=== PATIENT | female | born 1945 | race Caucasian/White ===

== ENCOUNTER 2020-12-29 13:46 | Outpatient (CLI) | payer MEDICARE | END 2020-12-29 13:47 | disposition home or self-care (01) | LOC: CSHRAD 13:46 | PROVIDERS: ATTEND Nurse Practitioner | DX: R06.00 Dyspnea, unspecified (principal) | CPT/HCPCS: 71046 ==

== ENCOUNTER 2021-06-17 09:03 | Inpatient (IN) | payer MEDICARE ==
[2021-06-17 10:10] LABS: Hemoglobin 9.6 g/dL (12.0-15.5); Mean Corpuscular HGB CONC 30.7 g/dL (32.0-36.0); Mean Corpuscular Hemoglobin 29.4 pg (27.0-33.0); Mean Platelet Volume 12.8 fl (7.4-10.4); Platelet Count 167 10x3/uL (150-450); RBC Distribution Width 15.9 % (11.5-14.5); Red Blood Cell (RBC) Count 3.26 10x6/uL (3.90-5.03); White Blood Cell (WBC) Count 2.6 10x3/uL (3.5-10.5)
[2021-06-17 10:11] LABS: MDiff Complete? YES
[2021-06-17 10:26] LABS: ALT (SGPT) 13 U/L (8-55); AST (SGOT) 13 U/L (5-34); Albumin 2.6 g/dL (3.4-4.8); Alkaline Phosphatase 64 U/L (40-110); Anion Gap 12 mmol/L (10-20); BUN (Urea Nitrogen) 14 mg/dL (9.8-20.1); Bilirubin, Total 0.4 mg/dL (0.2-1.2); Calc. Creatinine Clearance 0 mL/min (70-130); Calcium 7.8 mg/dL (7.8-10.44); Carbon Dioxide 31 mmol/L (23-31); Chloride 99 mmol/L (98-107); Globulin 1.8 g/dL (2.4-3.5); Glucose 132 mg/dL (83-110); Potassium 3.9 mmol/L (3.5-5.1); Protein, Total 4.4 g/dL (5.8-8.1); Sodium 138 mmol/L (136-145)
[2021-06-17 10:48] LABS: CKMB 1.4 ng/mL (0-6.6)
[2021-06-17 10:56] LABS: Lymphocytes 27 % (21-51); Neutrophil 30 % (42-75)
[2021-06-17 10:57] LABS: Eosinophils 28 % (0-10); Monocytes 15 % (0-10); Platelet Morphology Comment Appears Adequate
[2021-06-17 11:07] LABS: Hypochromia SLIGHT = 6-15 cells (100X) (0-5/hpf); Polychromasia SLIGHT = 2-3 cells (100X) (0-2/hpf)
[2021-06-17] MEDS ORDERED: Aspirin Chewable 81 MG TAB ONE (13:06)
[2021-06-17] MEDS ORDERED: Nitroglycerin 0.4 MG TAB (25 Tab Bottle) SL PRN (13:17)
[2021-06-17] MEDS ORDERED: Guaifenesin DM 100-10/5 ML UDCUP PO PRN (13:21)
[2021-06-17] MEDS ORDERED: Acetaminophen 325 MG TAB PO PRN (13:23)
[2021-06-17] MEDS ORDERED: Calcium Carbonate 500 MG ChewTAB PO PRN (13:23)
[2021-06-17] MEDS ORDERED: Ondansetron ODT 4 MG TAB PO PRN (13:23)
[2021-06-17 13:29] LABS: Troponin I 0.105 ng/mL (< 0.028)
[2021-06-17 14:43] LABS: Magnesium 2.1 mg/dL (1.6-2.6)
[2021-06-17] MEDS ORDERED: Furosemide 40 MG/4 ML VIAL SLOW IVP SCH (15:00)
[2021-06-17 16:45] LABS: Troponin I 0.105 ng/mL (< 0.028)
[2021-06-17] MEDS: guaiFENesin ER 600 MG TAB PO SCH (19:29)
[2021-06-17] MEDS: Benzonatate 100 MG CAP PO PRN (19:29)
[2021-06-18 05:20] LABS: Hemoglobin 9.2 g/dL (12.0-15.5); Mean Corpuscular Hemoglobin 29.5 pg (27.0-33.0); Mean Corpuscular Volume 95.2 fl (81.6-98.3); Mean Platelet Volume 12.4 fl (7.4-10.4); Platelet Count 149 10x3/uL (150-450); Red Blood Cell (RBC) Count 3.12 10x6/uL (3.90-5.03)
[2021-06-18 05:31] LABS: Anion Gap 15 mmol/L (10-20); BUN (Urea Nitrogen) 20 mg/dL (9.8-20.1); Calc. Creatinine Clearance 54 mL/min (70-130); Carbon Dioxide 31 mmol/L (23-31); Chloride 97 mmol/L (98-107); Cholesterol 223 mg/dl (< 200 Desired); Glucose 102 mg/dL (83-110); HDL Cholesterol 45 mg/dL (>60 Neg Risk); LDL Cholesterol, Calculated 151 mg/dL; Potassium 3.6 mmol/L (3.5-5.1); Sodium 139 mmol/L (136-145); Triglycerides 136 mg/dL (Less than 150)
[2021-06-18 06:37] LABS: MDiff Complete? YES
[2021-06-18 06:45] LABS: Band 2 % (5-11); Eosinophils 23 % (0-10); Lymphocytes 31 % (21-51); Monocytes 26 % (0-10); Neutrophil 16 % (42-75); Reactive Lymphocytes 2 % (0-10)
[2021-06-18 06:46] LABS: Platelet Morphology Comment Appears Adequate; RBC Morphology Normal
[2021-06-18] MEDS ORDERED: Potassium Chloride 20 MEQ TAB PO SCH (07:15)
[2021-06-18] MEDS: Benzonatate 100 MG CAP PO PRN (08:37)
[2021-06-18] MEDS: Enoxaparin Sodium 40 MG/0.4 ML SYRINGE SC SCH (08:37)
[2021-06-18] MEDS: Furosemide 40 MG TAB PO SCH ×2 (08:37→14:14)
[2021-06-18] MEDS: Zinc Sulfate 220 MG CAP PO SCH (08:38)
[2021-06-18] MEDS: Magnesium Oxide 400 MG TAB PO SCH (08:38)
[2021-06-18] MEDS: guaiFENesin ER 600 MG TAB PO SCH ×2 (08:38→20:07)
[2021-06-18] MEDS: Nebivolol HCl 5 MG TAB PO SCH (08:38)
[2021-06-18] MEDS: Cholecalciferol 1,000 UNITS (25 MCG) TAB PO SCH (08:38)
[2021-06-18] MEDS: Aspirin Chewable 81 MG TAB PO SCH (08:38)
[2021-06-18] MEDS: Citalopram 20 MG TAB PO SCH (08:38)
[2021-06-18] MEDS: Potassium Chloride 20 MEQ TAB PO SCH (08:38)
[2021-06-18] MEDS ORDERED: Furosemide 40 MG TAB PO SCH (09:00)
[2021-06-18] MEDS ORDERED: Dexamethasone 4 mg/ml Vial SLOW IVP SCH (13:15)
[2021-06-18] MEDS ORDERED: REMDESIVIR 200 MG in Sodium Chloride 0.9% 250 ML 210 ML IV SCH (14:00)
[2021-06-18] MEDS: Loperamide HCl 2 MG CAP PO PRN (18:00)
[2021-06-19 04:27] LABS: ALT (SGPT) 11 U/L (8-55); AST (SGOT) 12 U/L (5-34); Albumin 2.3 g/dL (3.4-4.8); Alkaline Phosphatase 59 U/L (40-110); Bilirubin, Direct 0.1 mg/dL (0.1-0.3); Bilirubin, Total 0.3 mg/dL (0.2-1.2); Protein, Total 4.5 g/dL (5.8-8.1)
[2021-06-19 05:33] VITALS: BMI 20.6
[2021-06-19] MEDS: guaiFENesin ER 600 MG TAB PO SCH ×2 (08:33→20:04)
[2021-06-19] MEDS: Citalopram 20 MG TAB PO SCH (08:33)
[2021-06-19] MEDS: Furosemide 40 MG TAB PO SCH ×2 (08:33→14:58)
[2021-06-19] MEDS: Magnesium Oxide 400 MG TAB PO SCH (08:33)
[2021-06-19] MEDS: Cholecalciferol 1,000 UNITS (25 MCG) TAB PO SCH (08:33)
[2021-06-19] MEDS: Zinc Sulfate 220 MG CAP PO SCH (08:33)
[2021-06-19] MEDS: Nebivolol HCl 5 MG TAB PO SCH (08:33)
[2021-06-19] MEDS: Aspirin Chewable 81 MG TAB PO SCH (08:33)
[2021-06-19] MEDS: Potassium Chloride 20 MEQ TAB PO SCH (08:33)
[2021-06-19] MEDS: Enoxaparin Sodium 40 MG/0.4 ML SYRINGE SC SCH (08:34)
[2021-06-19] MEDS: Dexamethasone 4 mg/ml Vial SLOW IVP SCH (08:34)
[2021-06-19] MEDS ORDERED: Cepastat Lozenges 1 LOZ PO PRN (09:38)
[2021-06-19] MEDS: REMDESIVIR 100 MG in Sodium Chloride 0.9% 250 ML 230 ML IV SCH (14:57)
[2021-06-19] MEDS: Sodium Chloride 0.65% Nasal 44 ML BOT EA NARE SCH ×2 (16:26→20:04)
[2021-06-20 04:18] LABS: Hemoglobin 8.8 g/dL (12.0-15.5); Mean Corpuscular HGB CONC 31.2 g/dL (32.0-36.0); Mean Corpuscular Hemoglobin 29.4 pg (27.0-33.0); Mean Corpuscular Volume 94.3 fl (81.6-98.3); Mean Platelet Volume 12.1 fl (7.4-10.4); Platelet Count 165 10x3/uL (150-450); RBC Distribution Width 15.9 % (11.5-14.5); Red Blood Cell (RBC) Count 2.99 10x6/uL (3.90-5.03); White Blood Cell (WBC) Count 2.5 10x3/uL (3.5-10.5)
[2021-06-20 04:36] LABS: ALT (SGPT) 10 U/L (8-55); AST (SGOT) 11 U/L (5-34); Albumin 2.3 g/dL (3.4-4.8); Alkaline Phosphatase 56 U/L (40-110); Bilirubin, Direct 0.1 mg/dL (0.1-0.3); Bilirubin, Total 0.3 mg/dL (0.2-1.2); Protein, Total 4.5 g/dL (5.8-8.1)
[2021-06-20 04:38] LABS: Anion Gap 14 mmol/L (10-20); BUN (Urea Nitrogen) 30 mg/dL (9.8-20.1); CRP (Inflammatory) 1.86 mg/dL (= or < 0.5); Calc. Creatinine Clearance 50 mL/min (70-130); Calcium 7.9 mg/dL (7.8-10.44); Carbon Dioxide 30 mmol/L (23-31); Chloride 99 mmol/L (98-107); Glucose 98 mg/dL (83-110); Potassium 3.9 mmol/L (3.5-5.1); Sodium 139 mmol/L (136-145)
[2021-06-20 06:04] LABS: MDiff Complete? YES
[2021-06-20 06:09] LABS: Band 6 % (5-11); Eosinophils 2 % (0-10); Lymphocytes 34 % (21-51); Monocytes 24 % (0-10); Neutrophil 30 % (42-75); Platelet Morphology Comment Appears Adequate; Reactive Lymphocytes 3 % (0-10)
[2021-06-20 06:10] LABS: RBC Morphology Normal
[2021-06-20] MEDS: Dexamethasone 4 mg/ml Vial SLOW IVP SCH (08:41)
[2021-06-20] MEDS: Citalopram 20 MG TAB PO SCH (08:42)
[2021-06-20] MEDS: guaiFENesin ER 600 MG TAB PO SCH ×2 (08:42→20:38)
[2021-06-20] MEDS: Magnesium Oxide 400 MG TAB PO SCH (08:42)
[2021-06-20] MEDS: Potassium Chloride 20 MEQ TAB PO SCH (08:42)
[2021-06-20] MEDS: Cholecalciferol 1,000 UNITS (25 MCG) TAB PO SCH (08:42)
[2021-06-20] MEDS: Nebivolol HCl 5 MG TAB PO SCH (08:42)
[2021-06-20] MEDS: Furosemide 40 MG TAB PO SCH (08:42)
[2021-06-20] MEDS: Enoxaparin Sodium 40 MG/0.4 ML SYRINGE SC SCH (08:44)
[2021-06-20] MEDS: Aspirin Chewable 81 MG TAB PO SCH (08:44)
[2021-06-20] MEDS: Zinc Sulfate 220 MG CAP PO SCH (08:45)
[2021-06-20] MEDS: Sodium Chloride 0.65% Nasal 44 ML BOT EA NARE SCH ×3 (09:17→20:28)
[2021-06-20] MEDS ORDERED: guaiFENesin/Codeine Phosphate 100 mg/10 mg 5 ml UD Cup PO PRN (11:58)
[2021-06-20] MEDS: REMDESIVIR 100 MG in Sodium Chloride 0.9% 250 ML 230 ML IV SCH (15:04)
[2021-06-21] MEDS: Loperamide HCl 2 MG CAP PO PRN (02:25)
[2021-06-21 04:35] LABS: Mean Corpuscular HGB CONC 31.5 g/dL (32.0-36.0); Mean Corpuscular Hemoglobin 29.9 pg (27.0-33.0); Mean Platelet Volume 11.1 fl (7.4-10.4); Platelet Count 173 10x3/uL (150-450); RBC Distribution Width 16.1 % (11.5-14.5); Red Blood Cell (RBC) Count 3.01 10x6/uL (3.90-5.03); White Blood Cell (WBC) Count 2.5 10x3/uL (3.5-10.5)
[2021-06-21 04:42] LABS: ALT (SGPT) 43 U/L (8-55); AST (SGOT) 44 U/L (5-34); Albumin 2.4 g/dL (3.4-4.8); Alkaline Phosphatase 58 U/L (40-110); Anion Gap 12 mmol/L (10-20); BUN (Urea Nitrogen) 29 mg/dL (9.8-20.1); Bilirubin, Direct 0.2 mg/dL (0.1-0.3); Bilirubin, Total 0.3 mg/dL (0.2-1.2); Calc. Creatinine Clearance 53 mL/min (70-130); Carbon Dioxide 28 mmol/L (23-31); Chloride 102 mmol/L (98-107); Glucose 90 mg/dL (83-110); Protein, Total 4.5 g/dL (5.8-8.1); Sodium 138 mmol/L (136-145)
[2021-06-21 06:06] LABS: MDiff Complete? YES
[2021-06-21 06:12] LABS: Band 7 % (5-11); Eosinophils 2 % (0-10); Lymphocytes 29 % (21-51); Monocytes 23 % (0-10); Neutrophil 33 % (42-75); Reactive Lymphocytes 6 % (0-10)
[2021-06-21 06:14] LABS: Platelet Morphology Comment Appears Adequate; RBC Morphology Normal
[2021-06-21] MEDS: Dexamethasone 4 mg/ml Vial SLOW IVP SCH (09:26)
[2021-06-21] MEDS: Cholecalciferol 1,000 UNITS (25 MCG) TAB PO SCH (09:26)
[2021-06-21] MEDS: Enoxaparin Sodium 40 MG/0.4 ML SYRINGE SC SCH (09:27)
[2021-06-21] MEDS: Sodium Chloride 0.65% Nasal 44 ML BOT EA NARE SCH ×3 (09:27→20:09)
[2021-06-21] MEDS: guaiFENesin ER 600 MG TAB PO SCH ×2 (09:27→20:09)
[2021-06-21] MEDS: Furosemide 20 MG TAB PO SCH (09:27)
[2021-06-21] MEDS: Nebivolol HCl 5 MG TAB PO SCH (09:27)
[2021-06-21] MEDS: Potassium Chloride 20 MEQ TAB PO SCH (09:27)
[2021-06-21] MEDS: Aspirin Chewable 81 MG TAB PO SCH (09:27)
[2021-06-21] MEDS: Citalopram 20 MG TAB PO SCH (09:27)
[2021-06-21] MEDS: Magnesium Oxide 400 MG TAB PO SCH (09:27)
[2021-06-21] MEDS: Zinc Sulfate 220 MG CAP PO SCH (09:27)
[2021-06-21] MEDS: REMDESIVIR 100 MG in Sodium Chloride 0.9% 250 ML 230 ML IV SCH (14:47)
[2021-06-22] MEDS: Loperamide HCl 2 MG CAP PO PRN (03:21)
[2021-06-22 04:23] LABS: Hemoglobin 9.7 g/dL (12.0-15.5); Mean Corpuscular HGB CONC 30.9 g/dL (32.0-36.0); Mean Corpuscular Hemoglobin 29.7 pg (27.0-33.0); Mean Platelet Volume 11.3 fl (7.4-10.4); Platelet Count 209 10x3/uL (150-450); RBC Distribution Width 15.9 % (11.5-14.5); Red Blood Cell (RBC) Count 3.27 10x6/uL (3.90-5.03); White Blood Cell (WBC) Count 3.4 10x3/uL (3.5-10.5)
[2021-06-22 04:32] LABS: ALT (SGPT) 109 U/L (8-55); AST (SGOT) 100 U/L (5-34); Albumin 2.6 g/dL (3.4-4.8); Alkaline Phosphatase 72 U/L (40-110); Bilirubin, Direct 0.2 mg/dL (0.1-0.3); Bilirubin, Total 0.4 mg/dL (0.2-1.2); Protein, Total 4.9 g/dL (5.8-8.1)
[2021-06-22 04:34] LABS: Anion Gap 13 mmol/L (10-20); BUN (Urea Nitrogen) 28 mg/dL (9.8-20.1); CRP (Inflammatory) 1.75 mg/dL (= or < 0.5); Calc. Creatinine Clearance 51 mL/min (70-130); Calcium 8.1 mg/dL (7.8-10.44); Carbon Dioxide 27 mmol/L (23-31); Chloride 102 mmol/L (98-107); Glucose 86 mg/dL (83-110); Potassium 3.9 mmol/L (3.5-5.1); Sodium 138 mmol/L (136-145)
[2021-06-22 05:08] LABS: MDiff Complete? YES; Platelet Morphology Comment Appears Adequate; RBC Morphology Normal
[2021-06-22 05:11] LABS: Band 3 % (5-11); Lymphocytes 33 % (21-51); Monocytes 26 % (0-10); Neutrophil 31 % (42-75); Reactive Lymphocytes 6 % (0-10)
[2021-06-22] MEDS: Cholecalciferol 1,000 UNITS (25 MCG) TAB PO SCH (08:41)
[2021-06-22] MEDS: Zinc Sulfate 220 MG CAP PO SCH (08:41)
[2021-06-22] MEDS: Potassium Chloride 20 MEQ TAB PO SCH (08:42)
[2021-06-22] MEDS: guaiFENesin ER 600 MG TAB PO SCH (08:42)
[2021-06-22] MEDS: Dexamethasone 4 mg/ml Vial SLOW IVP SCH (08:42)
[2021-06-22] MEDS: Furosemide 20 MG TAB PO SCH (08:42)
[2021-06-22] MEDS: Nebivolol HCl 5 MG TAB PO SCH (08:42)
[2021-06-22] MEDS: Magnesium Oxide 400 MG TAB PO SCH (08:42)
[2021-06-22] MEDS: Aspirin Chewable 81 MG TAB PO SCH (08:42)
[2021-06-22] MEDS: Enoxaparin Sodium 40 MG/0.4 ML SYRINGE SC SCH (08:42)
[2021-06-22] MEDS: Sodium Chloride 0.65% Nasal 44 ML BOT EA NARE SCH ×2 (08:42→14:07)
[2021-06-22] MEDS: Citalopram 20 MG TAB PO SCH (08:42)
[2021-06-22 12:31] VITALS: BP 94/65; TEMP 98.1
[2021-06-22] MEDS: REMDESIVIR 100 MG in Sodium Chloride 0.9% 250 ML 230 ML IV SCH (12:57)
== END 2021-06-22 14:45 | disposition home or self-care (01) | DRG 177 ==
LOC: CSHERS 09:03 → CSHTELE 14:08 → OBSVTOIN 06-18 07:22
PROVIDERS: ADMIT Internal Medicine; ATTEND Internal Medicine
PROC: 8E0ZXY6 Isolation (ICD-10-PCS; 2021-06-18)
PROC: XW033E5 Introduction of Remdesivir Anti-infective into Peripheral Vein, Percutaneous Approach, New Technology Group 5 (ICD-10-PCS; principal; 2021-06-20)
DX: U07.1 COVID-19 (principal); D61.810 Antineoplastic chemotherapy induced pancytopenia; I50.33 Acute on chronic diastolic (congestive) heart failure; C90.00 Multiple myeloma not having achieved remission; Z94.84 Stem cells transplant status; I11.0 Hypertensive heart disease with heart failure; K21.9 Gastro-esophageal reflux disease without esophagitis; E78.5 Hyperlipidemia, unspecified; E88.09 Other disorders of plasma-protein metabolism, not elsewhere classified; F41.9 Anxiety disorder, unspecified; K58.9 Irritable bowel syndrome, unspecified; Z88.7 Allergy status to serum and vaccine; Z79.82 Long term (current) use of aspirin; Z79.899 Other long term (current) drug therapy
CPT/HCPCS: 36415; 71045; 80048; 80053; 80061; 80076; 82553; 82728; 83605; 83690; 83735; 83880; 84484; 85025; 86140; 87081; 87430; 93005; 93306; 94760; J0248; J1100; J1650; J1940; J7050

== ENCOUNTER 2021-12-29 22:39 | Inpatient (IN) | payer MEDICARE, OTHER ==
[~2021-12-29 22:39] MED LIST: Iopamidol 370 76% 100 ML VIAL ONE
[2021-12-29] MEDS ORDERED: Ventolin HFA Inhaler 60 PUFF INHALER ONE (23:25)
[2021-12-29 23:46] LABS: Hemoglobin 9.1 g/dL (12.0-15.5); MDiff Complete? YES; Mean Corpuscular HGB CONC 30.6 g/dL (32.0-36.0); Mean Corpuscular Hemoglobin 26.1 pg (27.0-33.0); Mean Corpuscular Volume 85.1 fl (81.6-98.3); Mean Platelet Volume 12.1 fl (7.4-10.4); Platelet Count 182 10x3/uL (150-450); RBC Distribution Width 17.3 % (11.5-14.5); Red Blood Cell (RBC) Count 3.49 10x6/uL (3.90-5.03); White Blood Cell (WBC) Count 2.4 10x3/uL (3.5-10.5)
[2021-12-29 23:47] LABS: Platelet Morphology Comment Appears Adequate
[2021-12-30] LABS: ALT (SGPT) 19 U/L (8-55); AST (SGOT) 19 U/L (5-34); Albumin 3.4 g/dL (3.4-4.8); Alkaline Phosphatase 97 U/L (40-110); Anion Gap 14 mmol/L (10-20); BUN (Urea Nitrogen) 22 mg/dL (9.8-20.1); Bilirubin, Total 0.6 mg/dL (0.2-1.2); Calc. Creatinine Clearance 0 mL/min (70-130); Calcium 8.9 mg/dL (7.8-10.44); Carbon Dioxide 24 mmol/L (23-31); Chloride 103 mmol/L (98-107); Estimated GFR 72; Globulin 2.5 g/dL (2.4-3.5); Glucose 119 mg/dL (83-110); Potassium 3.9 mmol/L (3.5-5.1); Protein, Total 5.9 g/dL (5.8-8.1); Sodium 137 mmol/L (136-145)
[2021-12-30 00:24] LABS: CKMB 1.6 ng/mL (0-6.6)
[2021-12-30 00:27] LABS: SARS-CoV-2 NAA Rapid Test DETECTED (NotDetected)
[2021-12-30] MEDS ORDERED: Furosemide 40 MG/4 ML VIAL ONE (01:17)
[2021-12-30] MEDS ORDERED: Dexamethasone 10 MG/ML VIAL ONE (01:17)
[2021-12-30] MEDS ORDERED: Acetaminophen 325 MG TAB PO PRN (01:38)
[2021-12-30] MEDS ORDERED: Senokot S 8.6-50 MG TAB PO PRN (01:38)
[2021-12-30] MEDS ORDERED: Calcium Carbonate 500 MG ChewTAB PO PRN (01:38)
[2021-12-30] MEDS ORDERED: Ondansetron PF 4 MG/2 ML Vial IVP PRN (01:38)
[2021-12-30] MEDS ORDERED: Ventolin HFA Inhaler 60 PUFF INHALER INH PRN (01:42)
[2021-12-30 02:09] LABS: Band 7 % (5-11); Eosinophils 23 % (0-10); Lymphocytes 20 % (21-51); Monocytes 12 % (0-10); Neutrophil 37 % (42-75)
[2021-12-30] MEDS ORDERED: REMDESIVIR 200 MG in Sodium Chloride 0.9% 250 ML 210 ML IV SCH (03:00)
[2021-12-30 04:47] LABS: Hemoglobin 8.7 g/dL (12.0-15.5); Mean Corpuscular HGB CONC 31.5 g/dL (32.0-36.0); Mean Corpuscular Hemoglobin 26.2 pg (27.0-33.0); Mean Corpuscular Volume 83.1 fl (81.6-98.3); Mean Platelet Volume 12.7 fl (7.4-10.4); Platelet Count 175 10x3/uL (150-450); RBC Distribution Width 17.4 % (11.5-14.5); Red Blood Cell (RBC) Count 3.32 10x6/uL (3.90-5.03); White Blood Cell (WBC) Count 1.6 10x3/uL (3.5-10.5)
[2021-12-30 04:53] LABS: Anion Gap 14 mmol/L (10-20); BUN (Urea Nitrogen) 21 mg/dL (9.8-20.1); Calc. Creatinine Clearance 0 mL/min (70-130); Calcium 8.6 mg/dL (7.8-10.44); Carbon Dioxide 26 mmol/L (23-31); Chloride 102 mmol/L (98-107); Estimated GFR 72; Glucose 140 mg/dL (83-110); Potassium 3.7 mmol/L (3.5-5.1); Sodium 138 mmol/L (136-145)
[2021-12-30 05:49] LABS: CKMB 1.2 ng/mL (0-6.6)
[2021-12-30 07:20] LABS: MDiff Complete? YES
[2021-12-30 07:21] LABS: Platelet Morphology Comment Appears Adequate
[2021-12-30 07:28] LABS: Band 3 % (5-11); Eosinophils 9 % (0-10); Lymphocytes 13 % (21-51); Monocytes 15 % (0-10); Neutrophil 58 % (42-75)
[2021-12-30 07:29] LABS: Anisocytosis SLIGHT = 6-15 cells (100X) (0-5/hpf); Hypochromia SLIGHT = 6-15 cells (100X) (0-5/hpf); Ovalocytes SLIGHT = 2-5 cells (100X) (0-1/hpf)
[2021-12-30] MEDS: Magnesium Oxide 400 MG TAB PO SCH (09:30)
[2021-12-30] MEDS: Enoxaparin Sodium 40 MG/0.4 ML SYRINGE SC SCH (09:30)
[2021-12-30] MEDS: Citalopram 20 MG TAB PO SCH (09:30)
[2021-12-30] MEDS: Benzonatate 100 MG CAP PO SCH ×3 (09:30→20:03)
[2021-12-30] MEDS: Potassium Chloride 20 MEQ TAB PO SCH (09:30)
[2021-12-30] MEDS: Nebivolol HCl 5 MG TAB PO SCH (09:30)
[2021-12-30] MEDS: Aspirin 81 mg Enteric Coated Tablet PO SCH (09:30)
[2021-12-30] MEDS ORDERED: Aspirin 81 mg Enteric Coated Tablet ONE (09:36)
[2021-12-30] MEDS ORDERED: Potassium Chloride 20 MEQ TAB ONE (09:36)
[2021-12-30] MEDS ORDERED: Enoxaparin Sodium 40 MG/0.4 ML SYRINGE ONE (09:37)
[2021-12-30] MEDS ORDERED: Benzonatate 100 MG CAP ONE (09:37)
[2021-12-30 09:42] LABS: CKMB 1.1 ng/mL (0-6.6)
[2021-12-30] MEDS: Furosemide 20 MG/2 ML VIAL SLOW IVP SCH (13:25)
[2021-12-30] MEDS: Dexamethasone 4 mg/ml Vial SLOW IVP SCH (20:03)
[2021-12-30] MEDS ORDERED: Melatonin 3 MG TAB PO SCH (21:45)
[2021-12-30] MEDS ORDERED: Furosemide 40 MG/4 ML VIAL SLOW IVP SCH (23:45)
[2021-12-30] MEDS ORDERED: Potassium Chloride 20 MEQ TAB PO SCH (23:45)
[2021-12-31] MEDS ORDERED: REMDESIVIR 100 MG in Sodium Chloride 0.9% 250 ML 230 ML IV SCH (03:00)
[2021-12-31] MEDS: Furosemide 20 MG/2 ML VIAL SLOW IVP SCH ×2 (05:30→13:58)
[2021-12-31 06:22] LABS: Hemoglobin 8.8 g/dL (12.0-15.5); Mean Corpuscular HGB CONC 31.2 g/dL (32.0-36.0); Mean Corpuscular Hemoglobin 25.6 pg (27.0-33.0); Platelet Count 191 10x3/uL (150-450); RBC Distribution Width 17.3 % (11.5-14.5); Red Blood Cell (RBC) Count 3.44 10x6/uL (3.90-5.03); White Blood Cell (WBC) Count 1.8 10x3/uL (3.5-10.5)
[2021-12-31 06:25] LABS: Anion Gap 12 mmol/L (10-20); BUN (Urea Nitrogen) 30 mg/dL (9.8-20.1); Calc. Creatinine Clearance 44 mL/min (70-130); Calcium 8.6 mg/dL (7.8-10.44); Carbon Dioxide 31 mmol/L (23-31); Chloride 100 mmol/L (98-107); Estimated GFR 68; Glucose 136 mg/dL (83-110); Magnesium 2.2 mg/dL (1.6-2.6); Potassium 4.1 mmol/L (3.5-5.1); Sodium 139 mmol/L (136-145)
[2021-12-31 06:27] LABS: MDiff Complete? YES
[2021-12-31 07:49] LABS: Band 2 % (5-11); Eosinophils 2 % (0-10); Lymphocytes 6 % (21-51); Monocytes 24 % (0-10); Neutrophil 65 % (42-75)
[2021-12-31 07:51] LABS: Anisocytosis SLIGHT = 6-15 cells (100X) (0-5/hpf); Hypochromia SLIGHT = 6-15 cells (100X) (0-5/hpf); Ovalocytes SLIGHT = 2-5 cells (100X) (0-1/hpf); Polychromasia SLIGHT = 2-3 cells (100X) (0-2/hpf)
[2021-12-31 07:52] LABS: Platelet Morphology Comment Appears Adequate
[2021-12-31] MEDS: Citalopram 20 MG TAB PO SCH (08:31)
[2021-12-31] MEDS: Benzonatate 100 MG CAP PO SCH ×3 (08:31→20:20)
[2021-12-31] MEDS: Aspirin 81 mg Enteric Coated Tablet PO SCH (08:31)
[2021-12-31] MEDS: Potassium Chloride 20 MEQ TAB PO SCH (08:31)
[2021-12-31] MEDS: Magnesium Oxide 400 MG TAB PO SCH (08:32)
[2021-12-31] MEDS: Enoxaparin Sodium 40 MG/0.4 ML SYRINGE SC SCH (08:32)
[2021-12-31] MEDS: REMDESIVIR 100 MG in Sodium Chloride 0.9% 250 ML 230 ML IV SCH (09:37)
[2021-12-31] MEDS: Nebivolol HCl 5 MG TAB PO SCH (10:28)
[2021-12-31] MEDS ORDERED: Vancomycin HCl 750 MG in Sodium Chloride 0.9% 250 ML 250 ML IVPB SCH ×2 (18:00→20:00)
[2021-12-31] MEDS: Cefepime 1 GM in Sodium Chloride 0.9% 100 ML IVPB SCH (20:19)
[2021-12-31] MEDS: Dexamethasone 4 mg/ml Vial SLOW IVP SCH (20:20)
[2021-12-31] MEDS ORDERED: Melatonin 3 MG TAB PO SCH (21:30)
[2022-01-01] MEDS: Vancomycin HCl 500 MG in Sodium Chloride 0.9% 250 ML 250 ML IVPB SCH ×2 (02:55→15:15)
[2022-01-01 05:07] LABS: Anion Gap 11 mmol/L (10-20); BUN (Urea Nitrogen) 30 mg/dL (9.8-20.1); Calc. Creatinine Clearance 48 mL/min (70-130); Carbon Dioxide 28 mmol/L (23-31); Chloride 101 mmol/L (98-107); Estimated GFR 76; Glucose 156 mg/dL (83-110); Potassium 4.4 mmol/L (3.5-5.1); Sodium 136 mmol/L (136-145)
[2022-01-01 05:09] LABS: MDiff Complete? YES
[2022-01-01 05:10] LABS: Hemoglobin 8.4 g/dL (12.0-15.5); Mean Corpuscular HGB CONC 31.3 g/dL (32.0-36.0); Mean Corpuscular Hemoglobin 25.8 pg (27.0-33.0); Mean Corpuscular Volume 82.2 fl (81.6-98.3); Mean Platelet Volume 12.2 fl (7.4-10.4); Platelet Count 181 10x3/uL (150-450); RBC Distribution Width 17.2 % (11.5-14.5); Red Blood Cell (RBC) Count 3.26 10x6/uL (3.90-5.03)
[2022-01-01 05:21] LABS: CRP (Inflammatory) 6.66 mg/dL (= or < 0.5)
[2022-01-01] MEDS: Furosemide 20 MG/2 ML VIAL SLOW IVP SCH ×2 (05:34→15:14)
[2022-01-01 06:23] LABS: Lymphocytes 29 % (21-51); Monocytes 14 % (0-10); Neutrophil 57 % (42-75)
[2022-01-01 06:25] LABS: Anisocytosis SLIGHT = 6-15 cells (100X) (0-5/hpf); Hypochromia SLIGHT = 6-15 cells (100X) (0-5/hpf); Microcytosis SLIGHT = 6-15 cells (100X) (0-5/hpf)
[2022-01-01] MEDS: Benzonatate 100 MG CAP PO SCH ×3 (09:03→20:10)
[2022-01-01] MEDS: Enoxaparin Sodium 40 MG/0.4 ML SYRINGE SC SCH (09:03)
[2022-01-01] MEDS: Cefepime 1 GM in Sodium Chloride 0.9% 100 ML IVPB SCH ×2 (09:03→20:10)
[2022-01-01] MEDS: Magnesium Oxide 400 MG TAB PO SCH (09:03)
[2022-01-01] MEDS: Citalopram 20 MG TAB PO SCH (09:03)
[2022-01-01] MEDS: Aspirin 81 mg Enteric Coated Tablet PO SCH (09:03)
[2022-01-01] MEDS: Nebivolol HCl 5 MG TAB PO SCH ×2 (09:08→10:55)
[2022-01-01] MEDS: REMDESIVIR 100 MG in Sodium Chloride 0.9% 250 ML 230 ML IV SCH (11:45)
[2022-01-01] MEDS ORDERED: Sodium Chloride 0.9% 100 ML ONE (20:02)
[2022-01-01] MEDS ORDERED: Cefepime 1 GM VIAL ONE (20:02)
[2022-01-01] MEDS: Dexamethasone 4 mg/ml Vial SLOW IVP SCH (20:10)
[2022-01-01] MEDS ORDERED: Melatonin 3 MG TAB PO SCH (20:45)
[2022-01-02 02:37] LABS: Vancomycin, Trough 11.2 ug/mL
[2022-01-02] MEDS: Vancomycin HCl 750 MG in Sodium Chloride 0.9% 250 ML 250 ML IVPB SCH ×2 (03:09→16:48)
[2022-01-02] MEDS: Furosemide 20 MG/2 ML VIAL SLOW IVP SCH ×2 (05:51→16:48)
[2022-01-02] MEDS: Cefepime 1 GM in Sodium Chloride 0.9% 100 ML IVPB SCH ×2 (08:37→21:45)
[2022-01-02] MEDS: Enoxaparin Sodium 40 MG/0.4 ML SYRINGE SC SCH (08:38)
[2022-01-02] MEDS: Magnesium Oxide 400 MG TAB PO SCH (08:38)
[2022-01-02] MEDS: Aspirin 81 mg Enteric Coated Tablet PO SCH (08:38)
[2022-01-02] MEDS: Benzonatate 100 MG CAP PO SCH ×3 (08:38→21:45)
[2022-01-02] MEDS: Citalopram 20 MG TAB PO SCH (08:38)
[2022-01-02] MEDS: Nebivolol HCl 5 MG TAB PO SCH (08:38)
[2022-01-02] MEDS: REMDESIVIR 100 MG in Sodium Chloride 0.9% 250 ML 230 ML IV SCH (09:48)
[2022-01-02] MEDS: Guaifenesin DM 100-10/5 ML UDCUP PO PRN ×2 (09:48→22:07)
[2022-01-02 11:18] VITALS: BMI 19.8
[2022-01-02] MEDS ORDERED: Furosemide 20 MG/2 ML VIAL SLOW IVP SCH (20:00)
[2022-01-02] MEDS ORDERED: Melatonin 3 MG TAB PO SCH (21:00)
[2022-01-02] MEDS: Dexamethasone 4 mg/ml Vial SLOW IVP SCH (21:45)
[2022-01-03] MEDS: Vancomycin HCl 750 MG in Sodium Chloride 0.9% 250 ML 250 ML IVPB SCH ×2 (03:14→16:22)
[2022-01-03] MEDS: Furosemide 20 MG/2 ML VIAL SLOW IVP SCH ×2 (05:51→16:22)
[2022-01-03] MEDS: Magnesium Oxide 400 MG TAB PO SCH (08:34)
[2022-01-03] MEDS: Aspirin 81 mg Enteric Coated Tablet PO SCH (08:35)
[2022-01-03] MEDS: Benzonatate 100 MG CAP PO SCH ×3 (08:35→21:05)
[2022-01-03] MEDS: Cefepime 1 GM in Sodium Chloride 0.9% 100 ML IVPB SCH ×2 (08:35→21:06)
[2022-01-03] MEDS: Citalopram 20 MG TAB PO SCH (08:35)
[2022-01-03] MEDS: Enoxaparin Sodium 40 MG/0.4 ML SYRINGE SC SCH (08:35)
[2022-01-03] MEDS: Nebivolol HCl 5 MG TAB PO SCH (11:02)
[2022-01-03] MEDS: Guaifenesin DM 100-10/5 ML UDCUP PO PRN ×2 (11:02→16:22)
[2022-01-03] MEDS: REMDESIVIR 100 MG in Sodium Chloride 0.9% 250 ML 230 ML IV SCH (11:02)
[2022-01-03] MEDS ORDERED: Loperamide HCl 2 MG CAP PO PRN (16:13)
[2022-01-03] MEDS: Melatonin 3 MG TAB PO SCH (21:06)
[2022-01-03] MEDS: Dexamethasone 4 mg/ml Vial SLOW IVP SCH (21:06)
[2022-01-04] MEDS: Vancomycin HCl 750 MG in Sodium Chloride 0.9% 250 ML 250 ML IVPB SCH (03:31)
[2022-01-04 05:19] LABS: Mean Corpuscular HGB CONC 30.5 g/dL (32.0-36.0); Mean Corpuscular Hemoglobin 25.1 pg (27.0-33.0); Mean Corpuscular Volume 82.4 fl (81.6-98.3); Mean Platelet Volume 11.7 fl (7.4-10.4); Platelet Count 213 10x3/uL (150-450); RBC Distribution Width 16.6 % (11.5-14.5); Red Blood Cell (RBC) Count 3.58 10x6/uL (3.90-5.03); White Blood Cell (WBC) Count 2.2 10x3/uL (3.5-10.5)
[2022-01-04 05:24] LABS: Anion Gap 13 mmol/L (10-20); BUN (Urea Nitrogen) 25 mg/dL (9.8-20.1); CRP (Inflammatory) 2.02 mg/dL (= or < 0.5); Calc. Creatinine Clearance 55 mL/min (70-130); Calcium 8.3 mg/dL (7.8-10.44); Carbon Dioxide 31 mmol/L (23-31); Chloride 97 mmol/L (98-107); Estimated GFR 89; Glucose 168 mg/dL (83-110); Potassium 3.7 mmol/L (3.5-5.1); Sodium 137 mmol/L (136-145)
[2022-01-04 05:42] LABS: MDiff Complete? YES
[2022-01-04 05:48] LABS: Band 7 % (5-11); Lymphocytes 9 % (21-51); Monocytes 11 % (0-10); Neutrophil 72 % (42-75)
[2022-01-04 05:49] LABS: Elliptocytes SLIGHT = 2-5 cells (100X) (0-1/hpf); Platelet Morphology Comment Appears Adequate
[2022-01-04] MEDS: Furosemide 20 MG/2 ML VIAL SLOW IVP SCH (06:11)
[2022-01-04] MEDS: Cefepime 1 GM in Sodium Chloride 0.9% 100 ML IVPB SCH ×2 (08:44→20:44)
[2022-01-04] MEDS: Enoxaparin Sodium 40 MG/0.4 ML SYRINGE SC SCH (08:45)
[2022-01-04] MEDS: Benzonatate 100 MG CAP PO SCH ×3 (08:45→20:45)
[2022-01-04] MEDS: Magnesium Oxide 400 MG TAB PO SCH (08:45)
[2022-01-04] MEDS: Citalopram 20 MG TAB PO SCH (08:45)
[2022-01-04] MEDS: Aspirin 81 mg Enteric Coated Tablet PO SCH (08:45)
[2022-01-04] MEDS: Nebivolol HCl 5 MG TAB PO SCH (12:27)
[2022-01-04] MEDS: Melatonin 3 MG TAB PO SCH (20:45)
[2022-01-05] MEDS: Enoxaparin Sodium 40 MG/0.4 ML SYRINGE SC SCH (08:11)
[2022-01-05] MEDS: Cefepime 1 GM in Sodium Chloride 0.9% 100 ML IVPB SCH (08:11)
[2022-01-05] MEDS: Citalopram 20 MG TAB PO SCH (08:12)
[2022-01-05] MEDS: Magnesium Oxide 400 MG TAB PO SCH (08:12)
[2022-01-05] MEDS: Benzonatate 100 MG CAP PO SCH (08:12)
[2022-01-05] MEDS: Aspirin 81 mg Enteric Coated Tablet PO SCH (08:12)
[2022-01-05] MEDS: Nebivolol HCl 5 MG TAB PO SCH (08:12)
[2022-01-05 08:22] VITALS: TEMP 97.9
[2022-01-05] MEDS ORDERED: Furosemide 20 MG/2 ML VIAL SLOW IVP SCH (09:00)
[2022-01-05 11:18] VITALS: BP 106/62
== END 2022-01-05 11:05 | disposition home or self-care (01) | DRG 177 ==
LOC: CSHERS 22:39 → CSHERHOLD 12-30 01:17 → CSHIMCU 12-30 12:20 → CSHTELE 01-03 16:49
PROVIDERS: ADMIT Student in an Organized Health Care Education/Training Program; ATTEND Hospitalist
PROC: XW033E5 Introduction of Remdesivir Anti-infective into Peripheral Vein, Percutaneous Approach, New Technology Group 5 (ICD-10-PCS; principal; 2021-12-30)
PROC: 3E0333Z Introduction of Anti-inflammatory into Peripheral Vein, Percutaneous Approach (ICD-10-PCS; 2021-12-30)
PROC: 8E0ZXY6 Isolation (ICD-10-PCS; 2021-12-30)
PROC: 5A09357 Assistance with Respiratory Ventilation, Less than 24 Consecutive Hours, Continuous Positive Airway Pressure (ICD-10-PCS; 2022-01-01)
DX: U07.1 COVID-19 (principal); I50.33 Acute on chronic diastolic (congestive) heart failure; J12.82 Pneumonia due to coronavirus disease 2019; J96.01 Acute respiratory failure with hypoxia; C90.00 Multiple myeloma not having achieved remission; J91.0 Malignant pleural effusion; Z94.84 Stem cells transplant status; K21.9 Gastro-esophageal reflux disease without esophagitis; E78.00 Pure hypercholesterolemia, unspecified; F32.A Depression, unspecified; F41.1 Generalized anxiety disorder; I11.0 Hypertensive heart disease with heart failure; D63.8 Anemia in other chronic diseases classified elsewhere; Z88.8 Allergy status to other drugs, medicaments and biological substances; Z79.82 Long term (current) use of aspirin; Z79.899 Other long term (current) drug therapy; Z87.891 Personal history of nicotine dependence
CPT/HCPCS: 36415; 71045; 71275; 80048; 80053; 80202; 82553; 83605; 83735; 83880; 84145; 84443; 84484; 85025; 85379; 86140; 87040; 87070; 87205; 93005; 93306; 94640; 94760; 96374; 96375; J0248; J0692; J1100; J1650; J1940; J3370; J3490; J7050; Q9967; U0002

== ENCOUNTER 2022-03-07 19:33 | Emergency (ER) | payer MEDICARE ==
[2022-03-07] MEDS ORDERED: Aspirin Chewable 81 MG TAB ONE (20:22)
[2022-03-07 20:38] LABS: Hemoglobin 9.2 g/dL (12.0-15.5); MDiff Complete? YES; Mean Corpuscular HGB CONC 29.9 g/dL (32.0-36.0); Mean Corpuscular Hemoglobin 23.9 pg (27.0-33.0); Platelet Count 226 10x3/uL (150-450); RBC Distribution Width 17.3 % (11.5-14.5); Red Blood Cell (RBC) Count 3.85 10x6/uL (3.90-5.03); White Blood Cell (WBC) Count 3.1 10x3/uL (3.5-10.5)
[2022-03-07 20:39] LABS: Platelet Morphology Comment Appears Adequate
[2022-03-07] MEDS ORDERED: methylPREDNISolone Sod Succ/PF 125 MG/2 ML VIAL ONE (20:51)
[2022-03-07 20:52] LABS: ALT (SGPT) 12 U/L (8-55); AST (SGOT) 15 U/L (5-34); Albumin 3.3 g/dL (3.4-4.8); Alkaline Phosphatase 68 U/L (40-110); Anion Gap 14 mmol/L (10-20); BUN (Urea Nitrogen) 12 mg/dL (9.8-20.1); Bilirubin, Total 0.6 mg/dL (0.2-1.2); CK (CPK) 79 U/L (29-168); Calc. Creatinine Clearance 0 mL/min (70-130); Calcium 8.4 mg/dL (7.8-10.44); Carbon Dioxide 25 mmol/L (23-31); Chloride 101 mmol/L (98-107); Estimated GFR 79; Glucose 149 mg/dL (83-110); Lipase 6 U/L (8-78); Protein, Total 5.3 g/dL (5.8-8.1); Sodium 136 mmol/L (136-145)
[2022-03-07] MEDS ORDERED: Magnesium 2 GM/50 ML BAG (IN WATER) ONE (20:52)
[2022-03-07] MEDS ORDERED: cefTRIAXone\\ROCEPHIN 1 GM VIAL ONE (20:52)
[2022-03-07] MEDS ORDERED: Azithromycin 500 MG VIAL ONE (20:52)
[2022-03-07 20:59] LABS: Band 5 % (5-11); Eosinophils 2 % (0-10); Lymphocytes 18 % (21-51); Monocytes 17 % (0-10); Neutrophil 57 % (42-75)
[2022-03-07 21:31] LABS: Bilirubin Neg (Negative); Blood, Urine 150 (Negative); Clarity Clear (Clear); Glucose, Urine (Dipstick) 100 mg/dL (Negative); Ketone, Urine 5 mg/dL (Negative); Leukocyte Negative (Negative); Nitrite Negative (Negative); Protein, Urine (Dipstick) 500 mg/dl (Neg-Trace); Urobilinogen Normal mg/dL (Less than 2)
[2022-03-07 21:33] LABS: CKMB 1.3 ng/mL (0-6.6)
[2022-03-07 21:40] LABS: Bacteria/HPF 1+ HPF (None Seen); Mucous/LPF 1+ LPF (<2+); WBC/HPF 0-3 HPF (0-3)
[2022-03-07 22:13] LABS: SARS-CoV-2 NAA Rapid Test DETECTED (NotDetected)
[2022-03-07] MEDS ORDERED: Diazepam 10 MG/2 ML SYRINGE ONE (23:16)
== END 2022-03-08 02:28 | disposition short-term general hospital (02) ==
LOC: CSHERS 19:33
DX: U07.1 COVID-19 (principal); J18.9 Pneumonia, unspecified organism; J96.91 Respiratory failure, unspecified with hypoxia; I10 Essential (primary) hypertension; E78.00 Pure hypercholesterolemia, unspecified
CPT/HCPCS: 0240U; 71045; 71275; 80053; 82550; 82553; 83605; 83690; 83880; 84484; 85025; 87040; 93005; 94660 ×2; 94760; 36415; 81003; 81015; 96365; 96366; 96367; 96375; J0456; J0696; J2930; J3360; J3475; Q9967

== ENCOUNTER 2023-01-13 08:19 | Outpatient (CLI) | payer MEDICARE | END 2023-01-13 08:20 | disposition home or self-care (01) | LOC: CSHCT 08:19 | PROVIDERS: ATTEND Physician Assistant Medical | DX: K52.9 Noninfective gastroenteritis and colitis, unspecified (principal); C90.00 Multiple myeloma not having achieved remission; D50.9 Iron deficiency anemia, unspecified; J94.8 Other specified pleural conditions; K59.00 Constipation, unspecified; R19.00 Intra-abdominal and pelvic swelling, mass and lump, unspecified site | CPT/HCPCS: 74177; 82565 ==